=== PATIENT | female | born 1955 | race African-American/Black ===

== ENCOUNTER 2018-08-24 05:43 | Day surgery (SDC) | payer OTHER ==
[2018-08-24 08:15] VITALS: BMI 32.3
[2018-08-24 09:39] VITALS: TEMP 97.7
[2018-08-24 11:51] VITALS: BP 113/75; PULSE 77
--- NOTE | 2018-08-29 17:33 | PATH ---
Surgical Pathology Report Patient Name: ARCHIE TUCKER [facility]. Rec. #: [id number] /Age/Gender: 1955 (Age: 62) / F Account: [id number] Location: [facility]SU-ENDOSCOPY Taken: 08/24/2018 Received: 08/24/2018 Reported: 08/29/2018 Physicians: Mel Bae M.D. Specimen(s) Received A: BX DISTAL TRANSVERSE COLON POLYP B: DISTAL ASCENDING COLON POLYP C: POLYP SIGMOID Clinical History Serrated adenoma surveillance Postoperative diagnosis: Colon polyps, diverticulosis, hemorrhoids Final Diagnosis A. DISTAL TRANSVERSE COLON POLYP, POLYPECTOMY: INFLAMMATORY POLYP. B. DISTAL ASCENDING COLON POLYP, BIOPSY: POLYPOID COLONIC MUCOSA WITH PROMINENT LYMPHOID AGGREGATES. C. SIGMOID COLON POLYP, POLYPECTOMY: COLONIC MUCOSA WITH ELASTOSIS IN THE MUCOSA AND SUBMUCOSA. Comment: Elastin stain (performed at [place], [place] ([id number]) interpreted at [facility]) highlights elastic fibers. Electronically Signed Tommy García M.D. Gross Description A. Received in formalin, labeled "distal transverse colon polyp" is a guerrero, polypoid portion of soft tissue measuring 0.7 cm. in greatest dimension. The specimen is submitted in toto in one cassette. B. Received in formalin, labeled "biopsy proximal ascending colon polyp" is a guerrero, irregular portion of soft tissue measuring 0.6 cm. in greatest dimension. The specimen is submitted in toto in one cassette. C. Received in formalin, labeled "biopsy sigmoid colon polyp" are 3 guerrero, irregular portions of soft tissue ranging from 0.2-0.5 cm. in greatest dimension. The specimens are submitted in toto in one cassette. DL/08/24/2018 saudi/08/24/2018
== END 2018-08-24 10:40 | disposition home or self-care (01) ==
LOC: JASU-ENDO 05:43
PROVIDERS: ATTEND Internal Medicine Gastroenterology
PROC: 0DBN8ZX Excision of Sigmoid Colon, Via Natural or Artificial Opening Endoscopic, Diagnostic (ICD-10-PCS; 2018-08-24)
PROC: 0DBL8ZX Excision of Transverse Colon, Via Natural or Artificial Opening Endoscopic, Diagnostic (ICD-10-PCS; 2018-08-24)
PROC: 0DBK8ZX Excision of Ascending Colon, Via Natural or Artificial Opening Endoscopic, Diagnostic (ICD-10-PCS; principal; 2018-08-24 08:45)
DX: Z12.11 Encounter for screening for malignant neoplasm of colon (principal); Z86.010 Personal history of colon polyps; D12.2 Benign neoplasm of ascending colon; D12.5 Benign neoplasm of sigmoid colon; D12.3 Benign neoplasm of transverse colon; K64.8 Other hemorrhoids; K57.30 Diverticulosis of large intestine without perforation or abscess without bleeding
CPT/HCPCS: 88305-TC; 88313-TC

== ENCOUNTER 2021-03-31 04:30 | Day surgery (SDC) | payer OTHER ==
[2021-03-26 12:12] VITALS: BMI 34.4
[2021-03-31] MEDS ORDERED: IBUPROFEN 400 MG TABLET (FP) PO PRN (06:03)
[2021-03-31] MEDS ORDERED: ACETAMINOPHEN 325 MG TABLET (FP) PO PRN (06:03)
[2021-03-31] MEDS ORDERED: oxyCODONE HCL 5 MG TABLET PO PRN (06:03)
[2021-03-31] MEDS ORDERED: MIDAZOLAM HCL 2 MG/2 ML SINGLE DOSE VIAL ONE (09:32)
[2021-03-31] MEDS ORDERED: PROPOFOL 20 ML ONE (09:32)
[2021-03-31] MEDS ORDERED: DEXAMETHASONE SOD PHOSPHATE 4 MG/1 ML VIAL ONE (09:47)
[2021-03-31] MEDS ORDERED: KETOROLAC TROMETHAMINE 30 MG/1 ML VIAL ONE (10:02)
[2021-03-31] MEDS ORDERED: ONDANSETRON 4 MG/2 ML VIAL IVPUSH PRN ×2 (10:21→15:00)
[2021-03-31] MEDS ORDERED: LACTATED RINGERS SOLUTION 1,000 ML IV SCH (10:30)
[2021-03-31 13:17] VITALS: BP 130/80; PULSE 65; TEMP 98
== END 2021-03-31 13:15 | disposition home or self-care (01) ==
LOC: JASU-SURG 04:30
PROVIDERS: ATTEND Obstetrics & Gynecology
PROC: 0UB98ZZ Excision of Uterus, Via Natural or Artificial Opening Endoscopic (ICD-10-PCS; principal; 2021-03-31 09:00)
DX: D25.0 Submucous leiomyoma of uterus (principal)
CPT/HCPCS: 94760

== ENCOUNTER 2025-02-23 06:14 | Day surgery (SDC) | payer BC ==
[2025-02-22 13:28] VITALS: BMI 29.3
[2025-02-23 10:12] VITALS: RESP 16
[2025-02-23 10:14] VITALS: BP 118/70; PULSE 75; TEMP 97
== END 2025-02-23 10:23 | disposition home or self-care (01) ==
LOC: JASU-ENDO 06:14
PROVIDERS: ATTEND Internal Medicine Gastroenterology
PROC: 0DBN8ZX Excision of Sigmoid Colon, Via Natural or Artificial Opening Endoscopic, Diagnostic (ICD-10-PCS; 2025-02-23)
PROC: 0DBK8ZX Excision of Ascending Colon, Via Natural or Artificial Opening Endoscopic, Diagnostic (ICD-10-PCS; principal; 2025-02-23 09:00)
DX: Z12.11 Encounter for screening for malignant neoplasm of colon (principal); D12.2 Benign neoplasm of ascending colon; D12.5 Benign neoplasm of sigmoid colon; K64.8 Other hemorrhoids; K57.30 Diverticulosis of large intestine without perforation or abscess without bleeding; Z86.0100 Personal history of colon polyps, unspecified
CPT/HCPCS: 88305-TC; 88342-TC